=== PATIENT | male | born 1970 | race Caucasian/White ===

== ENCOUNTER 2025-07-18 21:29 | Emergency (ER) | payer OTHER, SELFPAY ==
[2025-07-18 21:32] VITALS: BP 121/81
[2025-07-18 21:51] LABS: Hematocrit 41.7 % (39.0-52.0); Hemoglobin 14.4 g/dL (13.0-18.0); Mean Corp Hgb Conc. 34.5 g/dL (33.0-37.0); Mean Corpuscular Volume 89.9 fL (80.0-94.0); Nucleated Red Blood Cells % 0 % (-); Platelet Count 147 10^3/uL (130-400); Red Cell Dist. Width 11.7 % (11.5-14.5)
[2025-07-18 22:12] LABS: ALT (SGPT) 31 U/L (0-50); AST (SGOT) 32 U/L (17-59); Albumin 4.5 g/dl (3.5-5.0); Alkaline Phosphatase 69 U/L (38-126); Blood Urea Nitrogen 13 mg/dl (9-20); Calcium 9.4 mg/dl (8.4-10.2); Carbon Dioxide 24 mmol/L (22-30); Chloride 104 mmol/L (98-107); Glucose 136 mg/dl (70-99); Potassium 3.9 mmol/L (3.5-5.1); Sodium 134 mmol/L (135-145); Total Protein 7.7 g/dl (6.3-8.2); eGFR > 60.00
--- NOTE | 2025-07-18 23:53 | ED.SKININJ ---
HPI-Injury
General
Chief Complaint: Skin Problem
Source: patient
Exam Limitations: none
Time Seen by Provider: 07/18/25 22:48
Nursing documentation reviewed up to this point in time: agreed with
History of Present Illness-Injury
Initial Injury comments:
Note:
CHIEF COMPLAINT(S)
Blister on arm with potential fever.
HISTORY OF PRESENT ILLNESS
The patient is a 55-year-old male who presented with a blister on his arm. The patient noted the blister on Tuesday when it was small, and it has progressively increased in size. He was uncertain of the blisters origin, mentioning that it initially
resembled a tick bite although he denied any known insect bites. The patient also reported feeling chills and thought he might have a fever, though he could not confirm the fevers temperature as his thermometers batteries were depleted. The patient
mentioned the blister appeared red and became more prominent over time. Blood work was discussed and conducted earlier, and antibiotics were planned to start management.
PHYSICAL EXAM
General: Alert, no acute distress.
Skin: Warm, dry. Area is erythematous on forearm surrounding the blister. There is an area of clearing.
Head: Normocephalic, atraumatic.
Neck: Supple, trachea midline.
Eye Ears, nose, mouth and throat: Oral mucosa moist.
Cardiovascular: Normal peripheral perfusion, No edema.
Respiratory: Respirations are non-labored.
Gastrointestinal: Abdomen nondistended
Back: Normal range of motion, Normal alignment.
Musculoskeletal: Normal ROM, normal strength.
Neurological: Alert and oriented to person, place, time, and situation, No focal neurological deficit observed.
Psychiatric: Cooperative, appropriate mood & affect.
PROBLEM LIST
- Blister on arm with potential associated infection
PLAN
- Initiation of antibiotics for suspected infection
- Blood draw added for further laboratory analysis.
DIFFERENTIAL DIAGNOSIS
The Differential Diagnosis includes, in no particular order and is not limited to:
1. Cellulitis
2. Insect bite reaction
3. Impetigo
4. Contact dermatitis
5. Herpetic juvenal
6. Lyme disease (though patient denied tick bite)
7. Blistering skin disorder
8. Allergic skin reaction
9. Erythema multiforme
10. Drug-induced skin reaction
Disposition:
SUMMARY OF ENCOUNTER
The patient is a 55-year-old male who presented with a blister on his forearm, which was surrounded by erythematous skin indicating cellulitis. He reported experiencing chills and suspected a low-grade fever, although it was not confirmed due to
non-functional thermometer at home. Laboratory tests, including a Lyme disease titer, were conducted. Blood work was drawn as part of the evaluation, and the decision was made to initiate antibiotics to manage the suspected infection.
DISPOSITION
Discharge
ASSESSMENT
The patient is assessed with cellulitis on the forearm with blister formation and potential low-grade fever.
PLAN
The patient will be started on antibiotics for the suspected cellulitis. A follow-up visit with the family doctor is recommended to evaluate the ongoing management and response to treatment.
INDEPENDENT REVIEW OF LABS AND INTERPRETATION OF TESTS
My independent review of the blood draw includes testing for Lyme disease among others, but specific lab values were not provided for detailed interpretation.
PATIENT EDUCATION AND COUNSELING
The patient was educated on signs and symptoms of worsening infection, such as increased redness, swelling, warmth, fever, or if the blister increases in size. Instructions were given to monitor the area closely and ensure adherence to the
antibiotic regimen.
FOLLOW-UP INSTRUCTIONS
Please schedule a follow-up visit with your family doctor to assess the response to treatment and ensure resolution of the cellulitis.
MEDICATION RECONCILIATION
Antibiotics prescribed for suspected cellulitis (specific antibiotic not mentioned).
MEDICAL DECISION MAKING
-Number and Complexity of Problems Addressed: Acute condition affecting care with the provisional diagnosis of cellulitis with blister formation on the forearm.
-Data:
My independent review of Lyme titer and blood work was conducted to rule out underlying infectious causes including Lyme disease.
-Risk:
Prescription medication was prescribed: antibiotics for suspected cellulitis.
DIAGNOSIS
- Cellulitis (L03.119)
- Blister (L98.9)
Course
Orders/Labs/Results
Orders:
Orders
07/18/25 21:41
Complete Blood Count/With Diff Urgent
Comprehensive Metabolic Panel Urgent
Lactic Acid Q4H
Comment: ON ICE, CANCEL 2ND ORDER IF FIRST LACTIC ACID LEVEL <2
Blood Culture Q20M
JUAN Source: Blood/Venous
Specimen Description:
Comment: Urgent from separate sites. If patient screens positive for possible sepsis
07/18/25 21:45
Blood Culture Q20M
JUAN Source: Blood/Venous
Specimen Description:
Comment: Urgent from separate sites. If patient screens positive for possible sepsis
07/18/25 23:51
Sulfamethox./Trimethoprim Ds [Bactrim Ds 800 mg/160 mg] 1 tablet PO NOW STA
07/18/25 23:53
Add On- LAB Urgent
Tests Added?: lyme titer
Abnormal Lab Results
07/18/25
21:41
WBC 3.6 L 10^3/uL
(4.8-10.8)
RBC 4.64 L 10^6/uL
(4.70-6.10)
Absolute Lymphs (auto) 0.6 L 10^3/uL
(1.2-3.4)
Neutrophils % 75.7 H %
(42.2-75.2)
Lymphocytes % 16.2 L %
(20.5-51.1)
Sodium 134 L mmol/L
(135-145)
Glucose 136 H mg/dl
(70-99)
07/18/25 21:41
07/18/25 21:41
Vital Signs
Initial and Last Documented VS:
Initial Vital Signs
Temp Pulse Resp BP Pulse Ox
99.5 F 80 18 121/81 98
07/18/25 21:32 07/18/25 21:32 07/18/25 21:32 07/18/25 21:32 07/18/25 21:32
Last Documented Vital Signs
Temp Pulse Resp BP Pulse Ox
99.5 F 80 18 121/81 99
07/18/25 21:32 07/18/25 21:32 07/18/25 21:32 07/18/25 21:32 07/18/25 23:10
*Pulse Oximetry
SaO2: 99
Oxygen Mode of Delivery: Room air
Patient hypoxic: no
*Critical Care Note
Total Time (30-74mins, 75-104mins- exclusive of procedures): Not Applicable
ED Attending Note
-
Portions of this chart may have been created with voice recognition software.� Occasional wrong word or��sound alike� substitutions may have occurred due to the inherent limitations of voice recognition software.
Discharge Plan
Departure
Patient Disposition: Home (Routine Discharge)
Date of Disposition: 07/18/25
Time of Disposition: 23:54
Patient with high blood pressure during this ER visit?: Yes
Condition: Good
Discharge Problem:
Cellulitis
Instructions: Cellulitis (Skin Infection), Adult (DC), BLOOD PRESSURE
Prescriptions:
New
sulfamethoxazole-trimethoprim [Bactrim DS] 800-160 mg tablet
1 tab PO BID 10 Days Qty: 20 0RF
Referrals:
Aretha Le DO [Family Provider, General]
Activity Restrictions/Additional Instructions:
Your prescriptions were sent electronically to the pharmacy that you specified.
Thank You for choosing [facility].
It was a pleasure meeting you and taking part in your care. We hope for your continued healing and wellness.
Please read discharge instructions in their entirety. However, they are for general education and may not describe your exact diagnosis at discharge. Information on your ER visit and medical conditions were discussed with you along with appropriate
follow up information...
If indicated, please take your medications as instructed and indicated on discharge paperwork.
Please schedule a follow up appointment as directed. Call to schedule an appointment
Please return to the emergency department with ANY change in, persisting, or worsening of symptoms. If any of your symptoms do not improve, or persist, or become more severe within 6-12 hours, please return to the emergency department for further
care.
Please return to the emergency department if you develop a headache, neck pain/stiffness, fever greater than 100.4F, chest pain, shortness of breath, persistent nausea, vomiting, slurred speech, difficulty walking, numbness/tingling, weakness, signs
of infection or any other symptoms that are worrisome to you.
If you have any questions or concerns please do not hesitate to call the Hospital at .
Interventions
Interventions:
*Risk Screen - Suicide Last Done: 07/18/25 21:32
*General Assessment Last Done: 07/18/25 21:32
*Neglect/Abuse Screening Last Done: 07/18/25 21:32
*ED- Fall Risk Assessment Last Done: 07/18/25 21:32
*ED COVID-19 Vaccine History Last Done: 07/18/25 21:32
*ED Influenza Vaccine History Last Done: 07/18/25 21:32
ED-Skin Assessment Last Done: 07/18/25 23:14
Discharge Date and Time
Print Language: TURKISH
[2025-07-19] MEDS: BACTRIM DS 800 MG/160 MG 1 TABLET PO (00:17)
--- NOTE | 2025-07-19 00:30 | EDRN ---
discharge instructions reviewed, no further questions or concerns at this time. pt ambulated with steady gait to waiting room exit.
== END 2025-07-19 00:32 | disposition home or self-care (01) ==
LOC: EMR 21:29
PROVIDERS: Emergency Medicine; EMERGENCY PHYSICIAN Student in an Organized Health Care Education/Training Program; FAMILY PHYSICIAN Hospitalist
DX: L03.114 Cellulitis of left upper limb (principal); S50.822A Blister (nonthermal) of left forearm, initial encounter; X58.XXXA Exposure to other specified factors, initial encounter
CPT/HCPCS: 99283; 80053; 83605; 85025; 86618; 87040

== ENCOUNTER → 2025-08-08 08:13 | Outpatient (REF) | payer OTHER, SELFPAY | LOC: HWEVLT 08:13 | PROVIDERS: ATTENDING PHYSICIAN Radiology Diagnostic Radiology | DX: I83.892 Varicose veins of left lower extremity with other complications (principal) | CPT/HCPCS: 93971 ==